=== PATIENT | female | born 1995 | race African-American/Black ===

== ENCOUNTER 2019-12-09 05:26 | Emergency (ER) | payer OTHER, SELFPAY ==
[2019-12-09 05:34] VITALS: BP 144/97; PULSE 81; RESP 16; TEMP 36.6; O2SAT 100
--- NOTE | 2019-12-09 06:24 | ED.GENADULT ---
HPI - General Adult General Chief complaint: Nausea/Vomiting/Diarrhea Stated complaint: CHEST PAIN X 2 DAYS Time Seen by Provider: 12/09/19 06:16 Source: patient Mode of arrival: ambulatory Limitations: no limitations History of Present Illness HPI narrative: Patient is a 23-year-old female who presents to the emergency department with multiple symptoms of flulike illness. Patient reports onset of cough a few days ago. Patient has noted some pain in her chest associated with cough but denies chest pain outside of coughing. She denies any shortness of breath. Patient has had congestion, rhinorrhea, chills, headache, and mild myalgias. Patient has also had intermittent nausea, vomiting, and diarrhea. Patient has noticed vomiting after eating, but is able to drink fluids. Patient has several coworkers who have been ill with similar symptoms. Patient did not receive a flu vaccine this year. complaint: Flu-Like Symptoms Onset (ago): day(s) Related Data Allergies Allergy/AdvReac Type Severity Reaction Status Date / Time No Known Allergies Allergy Verified 10/26/19 13:15 Review of Systems Review of Systems: All systems reviewed & are unremarkable except as noted in HPI and below Constitutional: Constitutional: Reports chills and Denies fever(s) ENT: Reports nasal congestion and Reports nasal discharge Cardiovascular: Cardiovascular: Reports chest pain Respiratory: Respiratory: Reports cough and Denies dyspnea Gastrointestinal: Gastrointestinal: Denies abdominal pain, Reports diarrhea, Reports nausea and Reports vomiting Musculoskeletal: Musculoskeletal: Reports myalgias Neurologic: Reports headache(s) PMFSH Past Medical History Medical History (Updated 12/09/19 @ 07:01 by Safia Shine MD) No significant past medical history Surgical History Surgical History (Updated 12/09/19 @ 06:27 by Safia Shine MD) No significant past surgical history Social History Social History Gender identity (if verbalized by the patient): Female Exam Const: General: cooperative, no acute distress and alert Nutritional Appearance: well nourished Orientation/consciousness: patient oriented x3 Limitations: no limitations HENMT: Mouth: Yes lip normal and Yes moist mucous membranes Resp: Effort & Inspection: normal respiratory effort Auscultation: clear to auscultation bilaterally Cardio: Rate: regular rate Rhythm: regular rhythm GI: GI Palp: Yes Soft to palpation and No Tenderness to palpation present (GI) Auscultation: normal bowel sounds Skin: General skin exam: normal color Neuro: General: patient oriented x3 Cognition (Neuro): normal cognition Speech: normal speech Extrem: General: normal to inspection, full ROM and no clubbing, cyanosis or edema Psych: Mental Status: mental status grossly normal Affect: normal affect Attitude: cooperative Course Course Emergency Course: Vital signs stable without orthostasis. Labs unremarkable. Patient with flulike illness. Counseled on symptomatic management. Will prescribe antiemetics for home use. Vital Signs Vital signs: Vital Signs Temperature 97.9 F 12/09/19 05:34 Pulse Rate 81 12/09/19 05:34 Respiratory Rate 16 12/09/19 05:34 Blood Pressure 144/97 H 12/09/19 05:34 Pulse Oximetry 100 12/09/19 05:34 Temperature 97.9 F 12/09/19 05:34 Pulse Rate 87 12/09/19 06:58 Respiratory Rate 18 12/09/19 06:58 Blood Pressure 138/82 12/09/19 06:58 Pulse Oximetry 100 12/09/19 06:58 Medical Decision Making Vital Signs Vital Signs: Vital Signs Temperature 97.9 F 12/09/19 05:34 Pulse Rate 81 12/09/19 05:34 Respiratory Rate 16 12/09/19 05:34 Blood Pressure 144/97 H 12/09/19 05:34 Pulse Oximetry 100 12/09/19 05:34 Temperature 97.9 F 12/09/19 05:34 Pulse Rate 87 12/09/19 06:58 Respiratory Rate 18 12/09/19 06:58 Blood Pressure 13
[2019-12-09 06:31] LABS: Basophils Percent Auto 0.4 % (0.2-1.2); Eosinophils Absolute Auto 0.1 K/mm3 (0-0.3); Hematocrit 40.7 % (37.0-47.0); Hemoglobin 13.4 g/dL (12.0-15.0); Immature Granulocyte Absolute 0.02 K/mm3 (0.00-0.031); Immature Granulocyte Percent A 0.2 % (0-0.5); Lymphocytes Absolute Auto 2.82 K/mm3 (0.9-3.2); Lymphocytes Percent Auto 30.4 % (18.3-44.2); Mean Corpuscular HGB Conc 32.9 g/dl (32-36); Mean Corpuscular Hemoglobin 31.5 pg (26-34); Mean Corpuscular Volume 95.5 fl (80-100); Mean Platelet Volume 11.5 fl (7.4-10.4); Monocytes Absolute Auto 0.7 K/mm3 (0.1-0.6); Monocytes Percent Auto 7.1 % (2.6-8.5); Neutrophils Absolute Auto 5.6 K/mm3 (1.3-6.7); Neutrophils Percent Auto 60.9 % (45.5-73.1); Platelet Count Result 218 k/mm3 (150-375); Red Blood Count 4.26 M/mm3 (4.2-5.4); Red Cell Distribution Width 13.2 % (11.5-14.5); White Blood Count 9.3 K/mm3 (4.5-10.0)
[2019-12-09 06:33] VITALS: BP 129/86; BP 141/97; PULSE 64; PULSE 66; PULSE 73
[2019-12-09 06:36] LABS: Add Urine Microscopic? NO; Appearance Urine Clear (Clear); Bilirubin Urine Negative (Negative); Blood Urine Negative (Negative); Color Urine Yellow (Yellow); Glucose Urine UA Negative (Negative); Ketones Urine Negative (Negative); Leukocyte Esterase Ur Negative LEU/UL (Negative); Mucus Urine Few /lpf; Nitrate Urine Negative (Negative); Protein Urine Negative (Negative); RBC Urine 0-2 /hpf (0-2); Specific Grav Ur 1.029 (1.001-1.035); Squamous Epithelial Cell Urine Few /hpf (Few); Urobilinogen Urine Negative mg/dL (<2.0); WBC Urine 0-3 /hpf
[2019-12-09 06:44] LABS: Alanine Aminotransferase 13 U/L (4-35); Albumin Level 3.9 g/dL (3.5-5.1); Alkaline Phosphatase 41 U/L (38-126); Aspartate Amino Transferase 23 U/L (14-36); Bilirubin,Total 0.2 mg/dL (0.2-1.3); Blood Urea Nitrogen 15 mg/dL (7-17); Calcium 8.9 mg/dL (8.4-10.2); Carbon Dioxide 24 mmol/L (22-30); Chloride 109 mmol/L (98-107); Estimated Glomerular Filt Rate > 60; Glucose 91 mg/dL (65-105); Lipase 102 U/L (23-300); Potassium 4.1 mmol/L (3.4-5.0); Sodium 141 mmol/L (137-145)
[2019-12-09 06:58] VITALS: BP 138/82; PULSE 87; RESP 18; O2SAT 100
[2019-12-09 07:12] VITALS: BP 155/97; PULSE 68; RESP 18; O2SAT 100
== END 2019-12-09 07:14 | disposition home or self-care (01) ==
PROVIDERS: Emergency Medicine; Emergency Provider Emergency Medicine
DX: B34.9 Viral infection, unspecified (principal)
CPT/HCPCS: 36415; 80053; 81003; 81025; 83690; 85025; 87804; 99283